=== PATIENT | female | born 1990 | race Caucasian/White ===

== ENCOUNTER 2017-04-23 17:30 | Emergency (ER) | payer SELFPAY ==
[~2017-04-23] VITALS: Ht 162.6 cm; Wt 62.3 kg
[~2017-04-23 17:30] MED LIST: AMOXICILLIN500 MG PO; FERR SULFATE325 MG PO; FLUCONAZOLE150 MG PO; MOTRIN600 MG/TAB PO; NAPROSYN500 MG OR; NO MEDS; NORCO1 TA2 PO; ORTHO TRI-CY OR; PENICILLN VK500 MG PO; PRENATA7 PO; PRENATAL VITAMINS; PYRIDIUM200 MG OR; [UNRECOGNIZED DRUG - OTHER]; [UNRECOGNIZED DRUG - OTHER] PO
[2017-04-23] MEDS ORDERED: AMOXICILLIN500 MG PO (18:30)
[2017-04-23 18:45] VITALS: BP 126/68
== END 2017-04-23 18:56 | disposition home or self-care (01) | DRG 153 ==
LOC: ED 17:30
DX: J02.9 Acute pharyngitis, unspecified (principal); H92.03 Otalgia, bilateral

== ENCOUNTER 2017-10-25 19:06 | Emergency (ER) | payer SELFPAY ==
[~2017-10-25] VITALS: Ht 162.6 cm; Wt 65.0 kg
[2017-10-25 20:00] LABS: HEMATOCRIT 38.6 % (37.0-47.0); IMMATURE GRANULOCYTES 0.1 % (0.0-1.0); MEAN CELL VOLUME 82.3 fL CALC (80.0-100.0); MEAN CORPUSCULAR HGB 27.7 pG CALC (26.0-32.0); MEAN CORPUSCULAR HGB CONC 33.7 g/L CALC (32.0-36.0); NEUT# 4.19 thou/uL (2.00-7.15); RED BLOOD COUNT 4.69 mill/uL (4.20-5.60); RED CELL DISTRI WIDTH 12.9 % (11.5-15.5)
[2017-10-25 20:01] LABS: URINE BILIRUBIN - DIPSTICK NEGATIVE (NEGATIVE); URINE BLOOD DIPSTICK NEGATIVE (NEGATIVE); URINE CLARITY CLEAR; URINE COLOR YELLOW; URINE GLUCOSE - DIPSTICK NEGATIVE (NEGATIVE); URINE KETONE NEGATIVE (NEGATIVE); URINE LEUK ESTERASE NEGATIVE (NEGATIVE); URINE NITRITE - DIPSTICK NEGATIVE (Negative); URINE PH 5.5 (4.5-8.0); URINE PROTEIN - DIPSTICK NEGATIVE (NEG-TRACE); URINE UROBILINOGEN - DIPSTICK 0.2 E.U./dL (0.2)
[2017-10-25 21:14] LABS: BILIRUBIN, TOTAL 0.3 mg/dL (0.0-1.4); BUN 13 mg/dL (7-17); BUN/CREATININE RATIO 23 (12-20 (CALC)); CHLORIDE 101 mmol/l (95-108); CREATININE 0.6 mg/dL (0.5-1.0); GFR > 60 ML/MIN (>=60 (CALC)); GFR FOR AFR.AMER. > 60 ML/MIN (>=60 (CALC)); POTASSIUM 4.1 mmol/l (3.5-5.1); SGOT/AST 22 u/l (14-36); SGPT/ALT 37 u/l (9-52); SODIUM 141 mmol/l (137-146)
[2017-10-25 21:16] LABS: ALBUMIN 4.7 g/dL (3.2-5.0); ALKALINE PHOSPHATASE 50 u/l (38-126); ANION GAP 17 (6-22 (CALC)); CARBON DIOXIDE 27 mmol/l (22-30); TOTAL PROTEIN 7.8 g/dL (6.3-8.2)
[2017-10-25 21:26] VITALS: BP 140/82
== END 2017-10-25 21:25 | disposition home or self-care (01) | DRG 392 ==
LOC: ED 19:06
PROVIDERS: Family Medicine
DX: R10.84 Generalized abdominal pain (principal)

== ENCOUNTER 2018-05-05 13:58 | Emergency (ER) | payer SELFPAY ==
[~2018-05-05] VITALS: Ht 162.6 cm; Wt 63.0 kg
[2018-05-05] MEDS ORDERED: AMOXICILLIN875 MG PO (14:21)
[2018-05-05 14:28] VITALS: BP 128/80
== END 2018-05-05 14:28 | disposition home or self-care (01) | DRG 864 ==
LOC: ED 13:58
DX: R50.9 Fever, unspecified (principal); J20.9 Acute bronchitis, unspecified; H73.893 Other specified disorders of tympanic membrane, bilateral

== ENCOUNTER 2018-09-08 12:24 | Emergency (ER) | payer SELFPAY ==
[~2018-09-08 12:24] MED LIST changes: +AMOXICILLIN875 MG PO
== END 2018-09-08 12:30 | disposition left against medical advice (07) | DRG 951 ==
LOC: ED 12:24 → LWOBS 12:29
DX: Z91.19 Patient's noncompliance with other medical treatment and regimen (principal)

== ENCOUNTER 2018-09-16 09:33 | Emergency (ER) | payer SELFPAY ==
[~2018-09-16] VITALS: Ht 162.6 cm; Wt 68.4 kg
[2018-09-16 10:00] VITALS: BP 123/92
[2018-09-16] MEDS ORDERED: AMOXICILLIN500 MG PO (11:39)
[2018-09-16] MEDS ORDERED: CORTISPORIN OTI10 M2 AU (11:39)
== END 2018-09-16 12:01 | disposition home or self-care (01) | DRG 153 ==
LOC: ED 09:33
DX: H66.91 Otitis media, unspecified, right ear (principal); J02.9 Acute pharyngitis, unspecified; H92.01 Otalgia, right ear

== ENCOUNTER 2021-01-30 10:46 | Emergency (ER) | payer SELFPAY ==
[~2021-01-30] VITALS: Ht 162.6 cm; Wt 67.0 kg
[~2021-01-30 10:46] MED LIST changes: +CORTISPORIN OTI10 M2 AU
[2021-01-30 15:39] LABS: URINE BILIRUBIN - DIPSTICK NEGATIVE (NEGATIVE); URINE BLOOD DIPSTICK NEGATIVE (NEGATIVE); URINE COLOR YELLOW; URINE GLUCOSE - DIPSTICK NEGATIVE (NEGATIVE); URINE KETONE NEGATIVE (NEGATIVE); URINE LEUK ESTERASE NEGATIVE (NEGATIVE); URINE PH 7.5 (4.5-8.0); URINE PROTEIN - DIPSTICK NEGATIVE (NEG-TRACE); URINE SPECIFIC GRAVITY 1.015
[2021-01-30 15:41] LABS: HEMATOCRIT 35.1 % (37.0-47.0); HEMOGLOBIN 11.2 g/dl (12.0-16.0); IMMATURE GRANULOCYTES 0.2 % (0.0-5.0); MEAN CELL VOLUME 78.5 fL CALC (80.0-100.0); MEAN CORPUSCULAR HGB 25.1 pG CALC (26.0-32.0); MEAN CORPUSCULAR HGB CONC 31.9 g/dL CAL (32.0-36.0); NEUT# 3.93 thou/uL (2.00-7.15); RED BLOOD COUNT 4.47 mill/uL (4.20-5.60); RED CELL DISTRI WIDTH 14.3 % (11.5-15.5)
[2021-01-30 15:41] LABS: URINE NITRITE - DIPSTICK NEGATIVE (Negative)
[2021-01-30 16:01] LABS: ALBUMIN 4.2 g/dL (3.2-5.0); ALKALINE PHOSPHATASE 52 u/l (38-126); AMYLASE 74 u/l (30-110); ANION GAP 11 (6-22 (CALC)); BILIRUBIN, TOTAL 0.4 mg/dL (0.0-1.4); BUN 8 mg/dL (7-17); BUN/CREATININE RATIO 12 (12-20 (CALC)); CARBON DIOXIDE 26 mmol/l (22-30); CHLORIDE 103 mmol/l (95-108); CREATININE 0.6 mg/dL (0.5-1.0); GFR > 60 ML/MIN (>=60 (CALC)); GFR FOR AFR.AMER. > 60 ML/MIN (>=60 (CALC)); LIPASE 77 u/l (23-300); POTASSIUM 3.6 mmol/l (3.5-5.1); SGOT/AST 22 u/l (14-36); SODIUM 136 mmol/l (137-146); TOTAL PROTEIN 7.1 g/dL (6.3-8.2)
[2021-01-30 16:56] VITALS: BP 112/76
== END 2021-01-30 16:56 | disposition home or self-care (01) | DRG 563 ==
LOC: ED 10:46
DX: S39.011A Strain of muscle, fascia and tendon of abdomen, initial encounter (principal); X58.XXXA Exposure to other specified factors, initial encounter